=== PATIENT | male | born 1980 | race African-American/Black ===

== ENCOUNTER 2020-07-22 03:24 | Emergency (ER) | payer SELFPAY ==
[~2020-07-22] VITALS: Ht 185.4 cm; Wt 100.0 kg
[2020-07-22] MEDS ORDERED: ONDANSETRON 4MG ODT PO STA (04:16)
[2020-07-22 06:50] LABS: BASOPHILS % 0.5 % (0.0-2.0); HEMOGLOBIN. 16.4 g/dL (14.0-18.0); LYMPHOCYTES % 11.8 % (20.0-50.0); MEAN CORPUSCULAR HEMOGLOBIN 30.1 pg (28.0-32.0); MEAN CORPUSCULAR VOLUME 91.5 fL (80.0-94.0); MONOCYTES % 7.1 % (2.0-8.0); NEUTROPHILS % 80.6 % (40.0-76.0); PLATELET 237 x1000/uL (130-400); RED BLOOD CELL COUNT 5.46 mill/uL (4.7-6.1); RED CELL DISTRIBUTION WIDTH 13.2 % (11.6-14.6)
[2020-07-22 06:51] LABS: CHLORIDE 107 mEq/L (98-107)
[2020-07-22 07:00] LABS: ETHANOL BLOOD < 10 mg/dL
[2020-07-22 07:15] VITALS: BP 144/63
== END 2020-07-22 07:16 | disposition home or self-care (01) ==
LOC: ER 03:24
DX: F12.129 Cannabis abuse with intoxication, unspecified (principal); R40.4 Transient alteration of awareness
CPT/HCPCS: 36415; 80053; 80320; 85025; 93005; 99284; G0480